=== PATIENT | female | born 1975 | race African-American/Black ===

== ENCOUNTER 2021-11-24 17:50 | Emergency (ER) | payer BC ==
[~2021-11-24] VITALS: Ht 170.2 cm; Wt 84.8 kg
--- NOTE | 2021-11-24 17:50 | NUR ---
[facility] VIA GURNEY TO BED 09.
[2021-11-24 17:54] VITALS: BP 100/62
--- NOTE | 2021-11-24 17:59 | NUR ---
BP AT BEDSIDE 100/62, DR SEPULVEDA AT BEDSIDE FOR EVAL, PT A/OX4, DENIES ANY PAIN
--- NOTE | 2021-11-24 17:59 | NUR ---
46 Y FEMALE BIBA FROM [facility], SYNCOPE FOR 20-30 SECONDS IN [facility], WITNESSED, DENIES LOC. DONATED PLASMA IN THE MORNING AND FELT DIZZY. BP ON SCENE 60/30, 18G ON L HAND, GIVEN 1L BY EMS BP NOW 110/60. NKA PMH: DENIES
[2021-11-24] MEDS ORDERED: NACL 0.9% 1,000 ML IV ONE (18:00)
--- NOTE | 2021-11-24 18:18 | NUR ---
AMBULATED TO BATHROOM WITH STEADY GAIT
[2021-11-24 18:19] LABS: BASOPHILS % (AUTO) 0.7 % (0.0-2.0); HEMATOCRIT 32.6 % (36-48); HEMOGLOBIN 10.9 g/dL (12.0-16.0); LYMPHOCYTES # (AUTO) 1.7 K/uL (2.5-16.5); LYMPHOCYTES % (AUTO) 45.3 % (20.5-51.1); MEAN CORPUSCULAR HEMOGLOBIN 31 pg (27-31); MEAN CORPUSCULAR HGB CONC 34 g/dL (33-37); MEAN CORPUSCULAR VOLUME 91.4 fL (80-94); MONOCYTES # (AUTO) 0.3 K/uL (0.8-1.0); NEUTROPHILS # (AUTO) 1.7 K/uL (1.8-7.7); PLATELET COUNT (AUTO) 269 K/uL (140-450); RED BLOOD CELL COUNT(AUTO) 3.57 MIL/uL (4.20-5.40); RED CELL DISTRIBUTION WIDTH 13.7 % (11.6-13.7); WHITE BLOOD COUNT (AUTO) 3.7 K/uL (4.8-10.8)
[2021-11-24 18:30] LABS: ALBUMIN 2.1 g/dL (3.4-5.0); ANION GAP 8.8 (8-16); CARBON DIOXIDE 25.6 mmol/L (21-32); CREATININE 0.9 mg/dL (0.6-1.3); POTASSIUM 3.4 mmol/L (3.5-5.1); TOTAL BILIRUBIN 0.2 mg/dL (0.0-1.0)
--- NOTE | 2021-11-24 19:16 | NUR ---
Recived report from [facility] RN. Recived patient A&O x 4. Pt denies feelings of dizzyness, "I feel a lot better." PATIENT RECIVED 1L BOLUS BY EMS, VERBAL ORDER FOR DC RX DY.DR SEPULVEDA.
--- NOTE | 2021-11-24 19:29 | NUR ---
IV removed, catheter intact and site benign. Applied folded 4x4 gauze and tape to stop bleeding.
[2021-11-24 19:30] VITALS: BP 111/72
--- NOTE | 2021-11-24 19:30 | NUR ---
Patient discharged with v/s stable. Written and verbal after care instructions given and explained. Patient verbalized understanding. Ambulatory with steady gait. All questions addressed prior to discharge. Advised to follow up with PMD.
== END 2021-11-24 19:30 | disposition home or self-care (01) ==
LOC: MED 17:50
DX: R55 Syncope and collapse (principal)
CPT/HCPCS: 36415; 80053; 81002; 81025; 85025; 93005; 99284; J7030